=== PATIENT | female | born 1970 | race Two or more races ===

== ENCOUNTER 2019-12-17 18:47 | Emergency (ER) | payer OTHER ==
[~2019-12-17] VITALS: Ht 154.9 cm; Wt 86.4 kg
[2019-12-17] MEDS ORDERED: normal saline 1000ml 1,000 ML IV ONE ×2 (21:30)
[2019-12-17] MEDS ORDERED: diphenhydrAMINE 50 mg/ml inj IV ONE (21:30)
[2019-12-17] MEDS ORDERED: proCHLORperazine 10 MG/2 ml inj IV ONE (21:30)
[2019-12-17] MEDS ORDERED: cyclobenzaprine 10mg tablet PO ONE (22:25)
[2019-12-17 23:38] VITALS: BP 157/100
== END 2019-12-17 23:39 | disposition home or self-care (01) ==
LOC: ER 18:47
DX: G43.909 Migraine, unspecified, not intractable, without status migrainosus (principal); R11.2 Nausea with vomiting, unspecified; R42 Dizziness and giddiness
CPT/HCPCS: 96361; 96374; 96375; 99284; J0780; J1200; J7030

== ENCOUNTER 2019-12-28 11:08 | Emergency (ER) | payer OTHER ==
[~2019-12-28] VITALS: Ht 172.7 cm; Wt 90.0 kg
[2019-12-28 13:28] LABS: BASOPHILS % (AUTO) 0.4 % (0-1); EOSINOPHILS # (AUTO) 0.1 X10'3 (0-0.9); EOSINOPHILS % (AUTO) 1.3 % (0-6); HEMATOCRIT 41.9 % (35.0-45.0); HEMOGLOBIN 14.1 g/dl (12.0-16.0); LYMPHOCYTES # (AUTO) 1.3 X10'3 (1.1-4.8); LYMPHOCYTES % (AUTO) 12.5 % (21-51); MEAN CORPUSCULAR HEMOGLOBIN 30.3 PG (27.0-31.0); MEAN CORPUSCULAR HGB CONC 33.6 g/dL (33.0-36.5); MEAN CORPUSCULAR VOLUME 90.2 FL (78-98); MEAN PLATELET VOLUME 8.2 FL (7.4-10.4); MONOCYTES # (AUTO) 0.5 X10'3 (0-0.9); MONOCYTES % (AUTO) 5.2 % (2-12); NEUTROPHILS # (AUTO) 8.5 X10'3 (1.8-7.7); NEUTROPHILS % (AUTO) 80.6 % (42-75); PLATELET COUNT 296 X10'3 (140-440); RED BLOOD COUNT 4.64 X10'6 (4.20-5.60); RED CELL DISTRIBUTION WIDTH 13.4 % (11.5-14.5); WHITE BLOOD COUNT 10.5 X10'3 (4.5-11.0)
--- NOTE | 2019-12-28 13:35 | NUR ---
spoke to pt regarding the background information ,pt stated that she went to family [employer] party on sat with and she had drinks but felt that she was not drunk ,pt said she usually get hives with alcholsometimes and she was feeling that he is going to get hives she went to get benadryl to her car and passed out pt stated that it was around 7-8 pm at night time . pt said her cousin thought she passed out and has some difficulity breathing ,as per pt family thought she is drunk and they haven't informed her earlier pt woke up around midnight and felt anal pain and toungue swollen ,pt said she usually gets constipated last bm was on saturday,she takes laxative to help constipation,pt has bm omn saturday with bld clot ,pt has 2 sores to her lft lateral side of toungue.pt called her sister and she thinks its her hemorrohoids. rpd reported by the er staff will be here in few mins. urine sample has not been collected.
[2019-12-28 13:42] LABS: ALANINE AMINOTRANSFERASE 58 U/L (12-78); ALBUMIN 3.8 G/DL (3.4-5.0); ALBUMIN/GLOBULIN RATIO 0.9 (1.1-1.5); ALKALINE PHOSPHATASE 121 IU/L (46-116); ANION GAP 9 (8-16); ASPARTATE AMINO TRANSFERASE 33 U/L (10-37); BILIRUBIN,TOTAL 0.5 MG/DL (0.1-1.0); BLOOD UREA NITROGEN 19 MG/DL (7-18); BUN/CREATININE RATIO 19.6 (6.6-38.0); CALCIUM 9.1 MG/DL (8.5-10.1); CHLORIDE 101 MMOL/L (99-107); CREATININE 0.97 MG/DL (0.40-0.90); GLUCOSE 89 MG/DL (70-104); POTASSIUM 3.4 MMOL/L (3.5-5.1); SODIUM 136 MMOL/L (135-145); TOTAL CARBON DIOXIDE 26.1 MMOL/L (24-32); TOTAL PROTEIN 8.1 G/DL (6.4-8.2); eGFR 61 ML/MIN
--- NOTE | 2019-12-28 14:05 | NUR ---
rpd at bedside.
[2019-12-28] MEDS ORDERED: morphine 4 MG/ML inj SYRINge IV ONE (14:40)
[2019-12-28] MEDS ORDERED: ketorolac trometh. 30mg/ml inj. IV ONE (14:40)
[2019-12-28] MEDS ORDERED: HYDR-4383 PO (14:40)
[2019-12-28 15:36] VITALS: BP 137/81
== END 2019-12-28 15:44 | disposition home or self-care (01) ==
LOC: ER 11:09
DX: K62.89 Other specified diseases of anus and rectum (principal); K62.5 Hemorrhage of anus and rectum; Z86.711 Personal history of pulmonary embolism; Z86.718 Personal history of other venous thrombosis and embolism; Z79.899 Other long term (current) drug therapy
CPT/HCPCS: 36415; 74176; 80053; 85025; 96374; 96375; 99284; J1885; J2270

== ENCOUNTER 2020-01-03 14:15 | Emergency (ER) | payer OTHER ==
[~2020-01-03] VITALS: Ht 154.9 cm; Wt 86.4 kg
[~2020-01-03 14:15] MED LIST: HYDR-4383 PO
--- NOTE | 2020-01-03 17:11 | NUR ---
RECTAL EXAM PERFORMED BY DR. FARMER
--- NOTE | 2020-01-03 17:12 | NUR ---
SISTER POSITIVE FOR COVID
[2020-01-03 17:15] VITALS: BP 153/109
[2020-01-03] MEDS ORDERED: HYDR25SU32 RC (17:21)
== END 2020-01-03 17:58 | disposition home or self-care (01) ==
LOC: ER 14:15
DX: K64.8 Other hemorrhoids (principal); K59.00 Constipation, unspecified; K62.5 Hemorrhage of anus and rectum; Z20.828 Contact with and (suspected) exposure to other viral communicable diseases; G43.909 Migraine, unspecified, not intractable, without status migrainosus; Z86.711 Personal history of pulmonary embolism; Z86.718 Personal history of other venous thrombosis and embolism; Z79.899 Other long term (current) drug therapy
CPT/HCPCS: 36415; 87635; 99283

== ENCOUNTER 2020-11-02 15:31 | Emergency (ER) | payer OTHER ==
[~2020-11-02] VITALS: Ht 154.9 cm; Wt 84.1 kg
[~2020-11-02 15:31] MED LIST changes: +HYDR25SU32 RC
--- NOTE | 2020-11-02 15:49 | NUR ---
DR TOUSSAINT MADE AWARE OF PAT STATUS. TO ENTER ORDERS.
[2020-11-02] MEDS ORDERED: aspirin 81mg tab.chew PO ONE (15:50)
[2020-11-02 16:33] LABS: D-DIMER 0.25 MG/L FEU (0-0.50)
[2020-11-03 01:19] LABS: ALBUMIN 3.5 G/DL (3.4-5.0); ANION GAP 10 (8-16); BLOOD UREA NITROGEN 12 MG/DL (7-18); BUN/CREATININE RATIO 12.9 (6.6-38.0); CALCIUM 8.1 MG/DL (8.5-10.1); CHLORIDE 104 MMOL/L (99-107); CREATININE 0.93 MG/DL (0.40-0.90); GLUCOSE 137 MG/DL (70-104); POTASSIUM 3.3 MMOL/L (3.5-5.1); SODIUM 141 MMOL/L (135-145); TOTAL CARBON DIOXIDE 26.7 MMOL/L (24-32); TROPONIN I < 0.04 NG/ML (0.0-0.05); eGFR 63 ML/MIN
[2020-11-03] MEDS ORDERED: iohexol 350MG/ML 100ml bottle IV ONE (01:23)
[2020-11-03 01:50] LABS: BASOPHILS # (AUTO) 0.1 X10'3 (0-0.2); BASOPHILS % (AUTO) 1.1 % (0-1); EOSINOPHILS # (AUTO) 0.1 X10'3 (0-0.9); EOSINOPHILS % (AUTO) 2.9 % (0-6); HEMATOCRIT 42.2 % (35.0-45.0); HEMOGLOBIN 14.2 g/dl (12.0-16.0); LYMPHOCYTES # (AUTO) 1.2 X10'3 (1.1-4.8); MEAN CORPUSCULAR HEMOGLOBIN 30.8 PG (27.0-31.0); MEAN CORPUSCULAR HGB CONC 33.7 g/dL (33.0-36.5); MEAN CORPUSCULAR VOLUME 91.3 FL (78-98); MEAN PLATELET VOLUME 8.8 FL (7.4-10.4); MONOCYTES # (AUTO) 0.4 X10'3 (0-0.9); NEUTROPHILS # (AUTO) 3.3 X10'3 (1.8-7.7); PLATELET COUNT 328 X10'3 (140-440); RED BLOOD COUNT 4.62 X10'6 (4.20-5.60); RED CELL DISTRIBUTION WIDTH 13.6 % (11.5-14.5); WHITE BLOOD COUNT 5.1 X10'3 (4.5-11.0)
[2020-11-03 01:56] VITALS: BP 184/113
[2020-11-03] MEDS ORDERED: labetalol 100mg tablet PO STA (01:57)
--- NOTE | 2020-11-03 01:58 | NUR ---
Dr Abraham made aware pt is hypertensive and has not taken her night time dose of labetolol yet. So ordered it.
[2020-11-03] MEDS ORDERED: LABE100T5 PO (02:00)
[2020-11-03] MEDS ORDERED: MONT10TA21 PO (02:00)
[2020-11-03] MEDS ORDERED: PANT20TA18 PO (02:00)
== END 2020-11-03 07:38 | disposition home or self-care (01) ==
LOC: ER 15:32
DX: R07.89 Other chest pain (principal); R20.0 Anesthesia of skin; I10 Essential (primary) hypertension; M54.89 Other dorsalgia; G43.909 Migraine, unspecified, not intractable, without status migrainosus; Z86.711 Personal history of pulmonary embolism; Z86.718 Personal history of other venous thrombosis and embolism; Z79.899 Other long term (current) drug therapy
CPT/HCPCS: 36415; 71275; 80048; 84484; 85025; 85379; 93005; 93971; 99285; Q9967

== ENCOUNTER 2022-11-28 14:22 | Emergency (ER) | payer OTHER ==
[~2022-11-28] VITALS: Ht 154.9 cm; Wt 85.0 kg
[~2022-11-28 14:22] MED LIST changes: -HYDR-4383 PO; -HYDR25SU32 RC; +LABE100T8 PO; +MONT-47 PO; +PANT20TA18 PO
[2022-11-28 14:25] VITALS: RESP 16; TEMP 97.3
[2022-11-28] MEDS ORDERED: nitroGLYCERIN 0.4mg SUBLingual tab SL PRN (14:30)
[2022-11-28 15:04] LABS: D-DIMER 0.36 MG/L FEU (0-0.50)
[2022-11-28 15:07] LABS: ALANINE AMINOTRANSFERASE 64 U/L (12-78); ALBUMIN 3.6 G/DL (3.4-5.0); ALBUMIN/GLOBULIN RATIO 0.9 (1.1-1.5); ALKALINE PHOSPHATASE 143 IU/L (46-116); ANION GAP 5 (8-16); ASPARTATE AMINO TRANSFERASE 29 U/L (10-37); BILIRUBIN,TOTAL 0.2 MG/DL (0.1-1.0); BLOOD UREA NITROGEN 10 MG/DL (7-18); BUN/CREATININE RATIO 14.9 (10.0-20.0); CHLORIDE 107 MMOL/L (99-107); CREATININE 0.67 MG/DL (0.40-0.90); GLUCOSE 107 MG/DL (70-104); POTASSIUM 3.6 MMOL/L (3.5-5.1); SODIUM 140 MMOL/L (135-145); TOTAL CARBON DIOXIDE 27.7 MMOL/L (24-32); TOTAL PROTEIN 7.8 G/DL (6.4-8.2); eCRCL 72 ML/MIN; eGFR > 90 ML/MIN
[2022-11-28 15:15] LABS: PRO BRAIN NATRIURETIC PEPTIDE 45 PG/ML (0-125)
[2022-11-28 15:22] LABS: EOSINOPHILS # (AUTO) 0.1 X10'3 (0-0.9); EOSINOPHILS % (AUTO) 2.1 % (0-6); HEMATOCRIT 41.2 % (35.0-45.0); HEMOGLOBIN 13.9 g/dl (12.0-16.0); LYMPHOCYTES # (AUTO) 1.4 X10'3 (1.1-4.8); LYMPHOCYTES % (AUTO) 33.9 % (21-51); MEAN CORPUSCULAR HEMOGLOBIN 30.5 PG (27.0-31.0); MEAN CORPUSCULAR HGB CONC 33.7 g/dL (33.0-36.5); MEAN CORPUSCULAR VOLUME 90.6 FL (78-98); MEAN PLATELET VOLUME 8.3 FL (7.4-10.4); MONOCYTES # (AUTO) 0.4 X10'3 (0-0.9); MONOCYTES % (AUTO) 8.5 % (2-12); NEUTROPHILS # (AUTO) 2.2 X10'3 (1.8-7.7); NEUTROPHILS % (AUTO) 54.5 % (42-75); PLATELET COUNT 336 X10'3 (140-440); RED BLOOD COUNT 4.55 X10'6 (4.20-5.60); RED CELL DISTRIBUTION WIDTH 13.2 % (11.5-14.5); WHITE BLOOD COUNT 4.1 X10'3 (4.5-11.0)
[2022-11-28 19:14] VITALS: O2SAT 99
[2022-11-29 01:46] VITALS: BP 152/98; PULSE 74
== END 2022-11-29 01:47 | disposition home or self-care (01) ==
LOC: ER 14:23
DX: R07.9 Chest pain, unspecified (principal); M54.9 Dorsalgia, unspecified; M79.602 Pain in left arm; G43.909 Migraine, unspecified, not intractable, without status migrainosus; Z79.899 Other long term (current) drug therapy
CPT/HCPCS: 36415; 71045; 80053; 83880; 84484; 85025; 85379; 93005; 99285